=== PATIENT | female | born 1965 | race African-American/Black ===

== ENCOUNTER → 2017-03-27 | Outpatient (CLI) | payer MEDICARE, MEDICAID ==
[~2017-03-27] VITALS: Ht 177.8 cm; Wt 138.2 kg
[~2017-03-27] MED LIST: ADIPEX-P37.5 M2 PO; ADVAIR 500/28 DISKU1 INH; ADVAIR 500/28 DISKUS IH; ALBUTEROL2.5 MG/3 M IH; BACTRIM DS 8001 TAB PO; BROVANA15 MCG/2 M IH; CEFDINIR300 MG PO; CEFTIN250 M1 PO; CETIRIZINE PO; COUMADIN 1010 MG/TAB PO; COUMADIN 5MG5 MG/TAB PO; COUMADIN5 MG PO; CYCLOBENZAPRINE10 M1 PO; DANTHRON75 MG PO; FUROSEMIDE40 MG; HCTZ 25MG TAB25 MG PO; HCTZ PO; IPRATROPIUM BROM3 M1 IH; K-LOR CON PO; LASIX 40MG TABL40 MG PO; LASIX40 M1 PO; LASIX40 MG PO; LEVAQUIN 750MG750 M1 PO; LEVOTHYROXINE0.15 MG PO; MUCINEX DM 60 M1 TER PO; NORCO 325 MG-51 TA1 PO; NORCO 325 MG-51 TAB PO; OMNICEF 300MG300 MG PO; OXYCODONE HCL10 M1 PO; POTASSIUM CHLO20 ME3 PO; POTASSIUM CHLO20 ME4 PO; POTASSIUM20 MEQ PO; PREDNISONE10 MG PO; PULMICORT0.5 MG/2 M IH; SINGULAIR10 MG PO; SPIRIVA18 MCG IH; SPIRIVA18 MCG INH; TAZTIA XT180 MG PO; TESSALON PERLE200 MG PO; TUSS PO; WARFARIN SODIUM10 MG PO; WARFARIN10 MG PO; ZITHROMAX Z PA250 MG PO; ZITHROMAX500 M2 PO; ZOLPIDEM TART10 MG PO; ZYRTEC10 MG PO
[2017-03-27 11:02] VITALS: BP 106/64
== END ==
LOC: AMSURD 10:08
DX: I10 Essential (primary) hypertension (principal); E78.2 Mixed hyperlipidemia; R20.2 Paresthesia of skin; K90.89 Other intestinal malabsorption; E03.4 Atrophy of thyroid (acquired); R73.02 Impaired glucose tolerance (oral)

== ENCOUNTER → 2017-03-28 | Outpatient (CLI) | payer MEDICARE, MEDICAID ==
[2017-03-27 11:02] VITALS: BP 106/64
== END ==
LOC: MAMMO 10:38
DX: Z12.31 Encounter for screening mammogram for malignant neoplasm of breast (principal)
CPT/HCPCS: G0202

== ENCOUNTER 2017-04-02 10:30 | Outpatient (RCR) | payer MEDICARE, MEDICAID ==
[2016-10-04 18:45] VITALS: BP 127/78
== END 2017-04-09 11:20 | disposition home or self-care (01) ==
LOC: PT 10:30
DX: M17.0 Bilateral primary osteoarthritis of knee (principal); M54.5 Low back pain

== ENCOUNTER → 2017-04-23 | Day surgery (SDC) | payer MEDICARE, MEDICAID ==
[2017-03-27 11:02] VITALS: BP 106/64
== END ==
LOC: MSO 07:27
DX: Z12.11 Encounter for screening for malignant neoplasm of colon (principal); Z79.01 Long term (current) use of anticoagulants; Z86.711 Personal history of pulmonary embolism; I73.9 Peripheral vascular disease, unspecified; I87.2 Venous insufficiency (chronic) (peripheral); I10 Essential (primary) hypertension; D86.0 Sarcoidosis of lung; E03.9 Hypothyroidism, unspecified; J45.909 Unspecified asthma, uncomplicated
CPT/HCPCS: 00810; J3490; J7120

== ENCOUNTER → 2017-06-21 | Outpatient (CLI) | payer MEDICARE, MEDICAID ==
[2017-03-27 11:02] VITALS: BP 106/64
== END ==
LOC: LAB 10:04
DX: K90.9 Intestinal malabsorption, unspecified (principal)

== ENCOUNTER → 2017-09-17 | Outpatient (CLI) | payer MEDICARE, MEDICAID ==
[2017-03-27 11:02] VITALS: BP 106/64
[2017-09-17 12:06] LABS: BASO # 0.1 (0.02-0.10); EOS # 0.4 (0.04-0.40); EOS % 4.4 % (1.0-5.0); HEMATOCRIT 38.8 % (37.0-47.0); HEMOGLOBIN 12.8 g/dL (12.5-16.0); LYMPH# 1.9 (1.50-4.00); MEAN CELL VOLUME 83 fl (78-100); MEAN CORPUSCULAR HEMOGLOBIN 28 pg (27-31); MEAN CORPUSCULAR HGB CONC 33 g/dL (33-37); MONO # 0.6 (0.20-0.80); NEU # 5.3 (1.40-6.50); PLATELET COUNT 385 K/mm3 (130-400); RED BLOOD COUNT 4.65 M/mm3 (4.10-5.30); RED CELL DISTRIBUTION WIDTH 14.1 % (11.5-14.5); WHITE BLOOD COUNT 8.2 K/mm3 (4.8-10.8)
[2017-09-17 12:42] LABS: ALBUMIN 3.7 g/dL (3.5-5.0); BUN/CREATININE RATIO 16.8 (6.0-26.0); CALCIUM 9.4 mg/dL (8.4-10.2); POTASSIUM 3.1 mmol/L (3.6-5.0); TOTAL BILIRUBIN 0.8 mg/dL (0.2-1.3); TOTAL PROTEIN 6.8 g/dL (6.3-8.2)
[2017-09-17 13:14] LABS: ERYTHROCYTE SEDIMENTATION RATE 27 mm/hr (0-20)
== END ==
LOC: LAB 11:30
PROVIDERS: Internal Medicine
DX: I10 Essential (primary) hypertension (principal); K90.9 Intestinal malabsorption, unspecified; E78.2 Mixed hyperlipidemia; E03.9 Hypothyroidism, unspecified

== ENCOUNTER → 2018-03-26 | Outpatient (CLI) | payer MEDICARE, MEDICAID ==
[2017-03-27 11:02] VITALS: BP 106/64
[2018-03-26 15:14] LABS: ALBUMIN 3.8 g/dL (3.5-5.0); BUN/CREATININE RATIO 12.6 (6.0-26.0); CALCIUM 8.4 mg/dL (8.4-10.2); TOTAL BILIRUBIN 0.4 mg/dL (0.2-1.3); TOTAL PROTEIN 7.3 g/dL (6.3-8.2)
[2018-03-26 16:15] LABS: POTASSIUM 2.8 mmol/L (3.6-5.0)
[2018-03-27 01:34] LABS: EOS # 0.2 (0.04-0.40); EOS % 2.3 % (1.0-5.0); HEMATOCRIT 39.2 % (37.0-47.0); HEMOGLOBIN 12.4 g/dL (12.5-16.0); LYMPH# 2.3 (1.50-4.00); MEAN CELL VOLUME 90 fl (78-100); MEAN CORPUSCULAR HEMOGLOBIN 28 pg (27-31); MEAN CORPUSCULAR HGB CONC 32 g/dL (33-37); MEAN PLATELET VOLUME 9.6 fl (7.4-10.4); MONO # 0.8 (0.20-0.80); NEU # 6.1 (1.40-6.50); PLATELET COUNT 369 K/mm3 (130-400); RED BLOOD COUNT 4.38 M/mm3 (4.10-5.30); RED CELL DISTRIBUTION WIDTH 15.1 % (11.5-14.5); WHITE BLOOD COUNT 9.5 K/mm3 (4.8-10.8)
[2018-03-27 01:47] LABS: ERYTHROCYTE SEDIMENTATION RATE 29 mm/hr (0-30)
== END ==
LOC: LAB 14:22
PROVIDERS: Internal Medicine
DX: E03.4 Atrophy of thyroid (acquired) (principal); I10 Essential (primary) hypertension; K90.89 Other intestinal malabsorption; D86.0 Sarcoidosis of lung; I26.99 Other pulmonary embolism without acute cor pulmonale

== ENCOUNTER → 2018-04-04 | Outpatient (CLI) | payer MEDICARE, MEDICAID ==
[2017-03-27 11:02] VITALS: BP 106/64
[2018-04-04 17:06] LABS: BUN/CREATININE RATIO 17.4 (6.0-26.0); CALCIUM 8.2 mg/dL (8.4-10.2); POTASSIUM 3.4 mmol/L (3.6-5.0)
== END ==
LOC: RAD 15:45 → LAB 15:55 → RAD 15:55
PROVIDERS: Internal Medicine
DX: I10 Essential (primary) hypertension (principal)

== ENCOUNTER → 2018-05-28 | Outpatient (CLI) | payer MEDICARE, MEDICAID ==
[2017-03-27 11:02] VITALS: BP 106/64
[2018-05-28 15:19] LABS: BASO # 0.1 (0.02-0.10); EOS # 0.4 (0.04-0.40); EOS % 4.6 % (1.0-5.0); HEMATOCRIT 39.1 % (37.0-47.0); HEMOGLOBIN 12.8 g/dL (12.5-16.0); LYMPH# 2.3 (1.50-4.00); MEAN CELL VOLUME 85 fl (78-100); MEAN CORPUSCULAR HEMOGLOBIN 28 pg (27-31); MEAN CORPUSCULAR HGB CONC 33 g/dL (33-37); MEAN PLATELET VOLUME 9.2 fl (7.4-10.4); MONO # 0.7 (0.20-0.80); NEU # 4.8 (1.40-6.50); PLATELET COUNT 343 K/mm3 (130-400); RED BLOOD COUNT 4.58 M/mm3 (4.10-5.30); RED CELL DISTRIBUTION WIDTH 14.3 % (11.5-14.5); WHITE BLOOD COUNT 8.3 K/mm3 (4.8-10.8)
[2018-05-28 15:35] LABS: ALBUMIN 3.6 g/dL (3.5-5.0); BUN/CREATININE RATIO 16.8 (6.0-26.0); CALCIUM 8.5 mg/dL (8.4-10.2); POTASSIUM 3.3 mmol/L (3.6-5.0); TOTAL BILIRUBIN 0.5 mg/dL (0.2-1.3); TOTAL PROTEIN 6.7 g/dL (6.3-8.2)
== END ==
LOC: LAB 14:48
PROVIDERS: Internal Medicine
DX: E03.9 Hypothyroidism, unspecified (principal); I10 Essential (primary) hypertension; E53.8 Deficiency of other specified B group vitamins; D86.0 Sarcoidosis of lung

== ENCOUNTER → 2018-07-26 | Outpatient (CLI) | payer MEDICARE, MEDICAID ==
[2017-03-27 11:02] VITALS: BP 106/64
[2018-07-26 17:01] LABS: CALCIUM 9.4 mg/dL (8.4-10.2)
== END ==
LOC: LAB 16:18
PROVIDERS: Internal Medicine
DX: I10 Essential (primary) hypertension (principal)

== ENCOUNTER → 2018-08-27 | Outpatient (CLI) | payer MEDICARE, MEDICAID ==
[2017-03-27 11:02] VITALS: BP 106/64
[2018-08-27 10:46] LABS: CALCIUM 8.8 mg/dL (8.4-10.2); POTASSIUM 3.6 mmol/L (3.6-5.0)
== END ==
LOC: LAB 10:09
PROVIDERS: Internal Medicine
DX: I10 Essential (primary) hypertension (principal)

== ENCOUNTER → 2018-11-12 | Outpatient (CLI) | payer MEDICARE, MEDICAID ==
[2017-03-27 11:02] VITALS: BP 106/64
== END ==
LOC: MAMMO 10:44
DX: Z12.31 Encounter for screening mammogram for malignant neoplasm of breast (principal)

== ENCOUNTER → 2018-11-19 | Outpatient (CLI) | payer MEDICARE, MEDICAID ==
[2017-03-27 11:02] VITALS: BP 106/64
[2018-11-19 12:19] LABS: EOS # 0.2 (0.04-0.40); EOS % 2.3 % (1.0-5.0); HEMATOCRIT 39.4 % (37.0-47.0); LYMPH# 1.8 (1.50-4.00); MEAN CELL VOLUME 86 fl (78-100); MEAN CORPUSCULAR HEMOGLOBIN 28 pg (27-31); MEAN CORPUSCULAR HGB CONC 33 g/dL (33-37); MEAN PLATELET VOLUME 9.3 fl (7.4-10.4); MONO # 0.5 (0.20-0.80); NEU # 5.7 (1.40-6.50); PLATELET COUNT 363 K/mm3 (130-400); RED BLOOD COUNT 4.58 M/mm3 (4.10-5.30); RED CELL DISTRIBUTION WIDTH 13.9 % (11.5-14.5); WHITE BLOOD COUNT 8.3 K/mm3 (4.8-10.8)
[2018-11-19 12:44] LABS: ALBUMIN 4.1 g/dL (3.5-5.0); CALCIUM 9.3 mg/dL (8.4-10.2); POTASSIUM 3.3 mmol/L (3.6-5.0); TOTAL BILIRUBIN 0.8 mg/dL (0.2-1.3); TOTAL PROTEIN 7.9 g/dL (6.3-8.2)
== END ==
LOC: LAB 12:03
PROVIDERS: Internal Medicine
DX: D86.0 Sarcoidosis of lung (principal); E78.2 Mixed hyperlipidemia; E03.9 Hypothyroidism, unspecified; I10 Essential (primary) hypertension; E53.8 Deficiency of other specified B group vitamins; K90.9 Intestinal malabsorption, unspecified

== ENCOUNTER → 2019-06-09 | Outpatient (CLI) | payer MEDICARE, MEDICAID ==
[2017-03-27 11:02] VITALS: BP 106/64
[2019-06-09 15:46] LABS: EOS # 0.3 (0.04-0.40); EOS % 3.4 % (1.0-5.0); HEMATOCRIT 40.1 % (37.0-47.0); HEMOGLOBIN 13.2 g/dL (12.5-16.0); MEAN CELL VOLUME 84 fl (78-100); MEAN CORPUSCULAR HEMOGLOBIN 28 pg (27-31); MEAN CORPUSCULAR HGB CONC 33 g/dL (33-37); MEAN PLATELET VOLUME 9.1 fl (7.4-10.4); MONO # 0.6 (0.20-0.80); NEU # 5.4 (1.40-6.50); PLATELET COUNT 348 K/mm3 (130-400); RED BLOOD COUNT 4.78 M/mm3 (4.10-5.30); RED CELL DISTRIBUTION WIDTH 14.6 % (11.5-14.5); WHITE BLOOD COUNT 8.3 K/mm3 (4.8-10.8)
[2019-06-09 15:57] LABS: POTASSIUM 3.5 mmol/L (3.5-5.1)
[2019-06-09 15:58] LABS: ALBUMIN 3.8 g/dL (3.5-5.0)
[2019-06-09 15:59] LABS: CALCIUM 8.9 mg/dL (8.3-10.5)
[2019-06-09 16:00] LABS: TOTAL PROTEIN 7.3 g/dL (6.4-8.3)
[2019-06-09 16:02] LABS: TOTAL BILIRUBIN 0.5 mg/dL (0.2-1.2)
== END ==
LOC: LAB 15:21
PROVIDERS: Internal Medicine
DX: E78.2 Mixed hyperlipidemia (principal); I10 Essential (primary) hypertension; E03.9 Hypothyroidism, unspecified; E53.8 Deficiency of other specified B group vitamins; D86.0 Sarcoidosis of lung; K90.9 Intestinal malabsorption, unspecified

== ENCOUNTER → 2019-12-16 | Outpatient (CLI) | payer MEDICARE, MEDICAID ==
[2017-03-27 11:02] VITALS: BP 106/64
== END ==
LOC: MAMMO 11:55
DX: Z12.31 Encounter for screening mammogram for malignant neoplasm of breast (principal)

== ENCOUNTER 2020-01-22 11:32 | Emergency (ER) | payer MEDICARE, MEDICAID ==
[~2020-01-22] VITALS: Ht 203.2 cm; Wt 147.5 kg
[~2020-01-22 11:32] MED LIST changes: -ADVAIR 500/28 DISKU1 INH; +ADVAIR DISKUS1 DS1 IH; -HCTZ 25MG TAB25 MG PO; +HCTZ 25MG25 MG PO; +RT SPIRIVA INH18 MCG IH; +SINGULAIR PO; -SINGULAIR10 MG PO; -SPIRIVA18 MCG INH
[2020-01-22 12:50] LABS: HEMATOCRIT 40.1 % (37.0-47.0); HEMOGLOBIN 13.1 g/dL (12.5-16.0); MEAN CELL VOLUME 85 fl (78-100); MEAN CORPUSCULAR HEMOGLOBIN 28 pg (27-31); MEAN CORPUSCULAR HGB CONC 33 g/dL (33-37); MEAN PLATELET VOLUME 9.5 fl (7.4-10.4); PLATELET COUNT 346 K/mm3 (130-400); RED BLOOD COUNT 4.71 M/mm3 (4.10-5.30); RED CELL DISTRIBUTION WIDTH 14.3 % (11.5-14.5)
[2020-01-22 12:55] LABS: WHITE BLOOD COUNT 20.7 K/mm3 (4.8-10.8)
[2020-01-22 12:58] LABS: ALBUMIN 3.9 g/dL (3.5-5.0)
[2020-01-22 12:59] LABS: POTASSIUM 3.1 mmol/L (3.5-5.1)
[2020-01-22 13:00] LABS: CALCIUM 9.3 mg/dL (8.3-10.5)
[2020-01-22 13:01] LABS: TOTAL PROTEIN 7.9 g/dL (6.4-8.3)
[2020-01-22 13:03] LABS: TOTAL BILIRUBIN 1.8 mg/dL (0.2-1.2)
[2020-01-22 13:10] LABS: PROTHROMBIN TIME 15.6 SECONDS (9.0-12.0)
[2020-01-22 13:26] LABS: LYMPHOCYTE 12 % (20-51); NEUTROPHILS 77 % (42-75)
[2020-01-22 13:27] LABS: MONOCYTE 10 % (3-10)
[2020-01-22 14:12] LABS: D-DIMER 0.61 mg/L FEU (0.15-0.50)
[2020-01-22 14:33] LABS: TROPONIN-I 0.04 ng/mL (<0.030)
[2020-01-22 16:21] VITALS: BP 129/80
[2020-01-22] MEDS ORDERED: VIBRAMYCIN HYC100 MG PO (16:27)
[2020-01-22] MEDS ORDERED: MEDROL DOSEPAK4 MG PO (16:27)
== END 2020-01-22 16:38 | disposition left against medical advice (07) ==
LOC: ED 11:32
PROVIDERS: Nurse Practitioner
DX: J18.9 Pneumonia, unspecified organism (principal); R79.89 Other specified abnormal findings of blood chemistry; J45.909 Unspecified asthma, uncomplicated; I10 Essential (primary) hypertension; Z87.891 Personal history of nicotine dependence; E66.01 Morbid (severe) obesity due to excess calories; Z79.01 Long term (current) use of anticoagulants; Z79.51 Long term (current) use of inhaled steroids; Z68.35 Body mass index [BMI] 35.0-35.9, adult
CPT/HCPCS: A4216; J0456; J0696; J2930; J7050; Q9967

== ENCOUNTER → 2020-01-26 | Outpatient (CLI) | payer MEDICARE, MEDICAID ==
[2020-01-22 16:21] VITALS: BP 129/80
[~2020-01-26] MED LIST changes: +MEDROL DOSEPAK4 MG PO; +VIBRAMYCIN HYC100 MG PO
== END ==
LOC: RAD 11:45
DX: J18.9 Pneumonia, unspecified organism (principal)

== ENCOUNTER → 2020-03-02 | Outpatient (CLI) | payer MEDICARE, MEDICAID ==
[2020-03-02 14:49] LABS: BASO # 0.1 (0.02-0.10); EOS # 0.4 (0.04-0.40); EOS % 5.7 % (1.0-5.0); HEMATOCRIT 40.2 % (37.0-47.0); HEMOGLOBIN 12.9 g/dL (12.5-16.0); LYMPH# 1.7 (1.50-4.00); MEAN CELL VOLUME 86 fl (78-100); MEAN CORPUSCULAR HEMOGLOBIN 27 pg (27-31); MEAN CORPUSCULAR HGB CONC 32 g/dL (33-37); MEAN PLATELET VOLUME 8.7 fl (7.4-10.4); MONO # 0.6 (0.20-0.80); NEU # 4.7 (1.40-6.50); PLATELET COUNT 455 K/mm3 (130-400); RED CELL DISTRIBUTION WIDTH 14.3 % (11.5-14.5); WHITE BLOOD COUNT 7.4 K/mm3 (4.8-10.8)
[2020-03-02 14:50] LABS: ALBUMIN 3.7 g/dL (3.5-5.0); POTASSIUM 3.5 mmol/L (3.5-5.1)
[2020-03-02 14:51] LABS: CALCIUM 9.5 mg/dL (8.3-10.5)
[2020-03-02 14:53] LABS: TOTAL PROTEIN 7.8 g/dL (6.4-8.3)
[2020-03-02 14:55] LABS: TOTAL BILIRUBIN 0.4 mg/dL (0.2-1.2)
[2020-03-02 14:59] LABS: MAGNESIUM 1.83 mg/dL (1.60-2.60)
== END ==
LOC: LAB 14:16
PROVIDERS: Internal Medicine
DX: K90.89 Other intestinal malabsorption (principal); I10 Essential (primary) hypertension; E78.2 Mixed hyperlipidemia; E03.9 Hypothyroidism, unspecified; E53.8 Deficiency of other specified B group vitamins; D86.0 Sarcoidosis of lung

== ENCOUNTER → 2020-03-09 | Outpatient (CLI) | payer MEDICARE, MEDICAID | LOC: LAB 15:52 | DX: Z01.419 Encounter for gynecological examination (general) (routine) without abnormal findings (principal); N89.8 Other specified noninflammatory disorders of vagina ==

== ENCOUNTER 2020-06-28 10:31 | Emergency (ER) | payer MEDICARE, MEDICAID ==
[~2020-06-28] VITALS: Ht 177.8 cm; Wt 149.1 kg
[2020-06-28] MEDS ORDERED: MEDROL DOSEPAK4 MG PO (11:17)
[2020-06-28 11:21] VITALS: BP 121/94
== END 2020-06-28 11:25 | disposition home or self-care (01) ==
LOC: ED 10:31
DX: M54.32 Sciatica, left side (principal); I25.10 Atherosclerotic heart disease of native coronary artery without angina pectoris; Z87.891 Personal history of nicotine dependence; Z86.718 Personal history of other venous thrombosis and embolism; Z86.711 Personal history of pulmonary embolism; Z79.01 Long term (current) use of anticoagulants

== ENCOUNTER → 2021-11-28 | Outpatient (CLI) | payer MEDICARE, MEDICAID ==
[2021-11-28 12:47] LABS: BASO # 0.05 K/mm3 (0.02-0.10); EOS # 0.39 K/mm3 (0.04-0.40); EOS % 5.3 % (1.0-5.0); HEMATOCRIT 39.8 % (37.0-47.0); LYMPH# 1.49 K/mm3 (1.50-4.00); MEAN CELL VOLUME 85 fl (78-100); MEAN CORPUSCULAR HEMOGLOBIN 28 pg (27-31); MEAN CORPUSCULAR HGB CONC 33 g/dL (33-37); MEAN PLATELET VOLUME 8.6 fl (7.4-10.4); MONO # 0.47 K/mm3 (0.20-0.80); NEU # 4.99 K/mm3 (1.40-6.50); PLATELET COUNT 309 K/mm3 (130-400); RED BLOOD COUNT 4.69 M/mm3 (4.10-5.30); WHITE BLOOD COUNT 7.4 K/mm3 (4.8-10.8)
[2021-11-28 12:59] LABS: POTASSIUM 3.7 mmol/L (3.5-5.1)
[2021-11-28 13:00] LABS: CALCIUM 9.7 mg/dL (8.3-10.5)
[2021-11-28 13:01] LABS: PROTHROMBIN TIME 16.4 SECONDS (9.0-12.0)
[2021-11-28 13:02] LABS: TOTAL PROTEIN 7.8 g/dL (6.4-8.3)
[2021-11-28 13:03] LABS: TOTAL BILIRUBIN 0.9 mg/dL (0.2-1.2)
[2021-11-28 13:08] LABS: MAGNESIUM 2.06 mg/dL (1.60-2.60)
[2021-11-28 13:09] LABS: URINE APPEARANCE HAZY; URINE BILIRUBIN NEGATIVE (NEGATIVE); URINE BLOOD 50 ery/uL (NEGATIVE); URINE COLOR YELLOW; URINE GLUCOSE NEGATIVE (NEGATIVE); URINE KETONE NEGATIVE (NEGATIVE); URINE NITRATE POSITIVE (NEGATIVE); URINE PROTEIN(semi-quant) 1+ (NEGATIVE); URINE UROBILINOGEN NORMAL (NORMAL)
[2021-11-28 13:10] LABS: URINE LEUKOCYTE ESTERASE 2+ (NEGATIVE); URINE MUCUS PRESENT (NOT PRESENT); URINE WBC 31-50 /hpf (0-3)
[2021-11-28 16:20] LABS: ERYTHROCYTE SEDIMENTATION RATE 58 mm/hr (0-30)
== END ==
LOC: LAB 12:31
PROVIDERS: Internal Medicine
DX: Z12.39 Encounter for other screening for malignant neoplasm of breast (principal); Z01.419 Encounter for gynecological examination (general) (routine) without abnormal findings; E03.4 Atrophy of thyroid (acquired); E53.8 Deficiency of other specified B group vitamins; I10 Essential (primary) hypertension; J45.40 Moderate persistent asthma, uncomplicated; K90.9 Intestinal malabsorption, unspecified; J43.9 Emphysema, unspecified; I26.99 Other pulmonary embolism without acute cor pulmonale; D86.0 Sarcoidosis of lung; E55.9 Vitamin D deficiency, unspecified; I87.2 Venous insufficiency (chronic) (peripheral); R73.03 Prediabetes; L30.9 Dermatitis, unspecified; N39.0 Urinary tract infection, site not specified